=== PATIENT | female | born 1950 | race Hispanic/Latino ===

== ENCOUNTER 2021-11-02 10:50 | Inpatient (IN) | payer MEDICARE ==
[2021-10-30 14:48] LABS: BASOPHILS % 0.4 % (0.0-1.0); EOSINOPHILS # (AUTO) 0.2 (0.0-0.4); EOSINOPHILS % 1.9 % (0.0-6.0); HEMOGLOBIN 13.2 g/dL (12.0-16.0); LYMPHOCYTES # (AUTO) 2.1 (1.0-3.2); MEAN CORPUSCULAR VOLUME 90.9 fL (81-99); MONOCYTES # (AUTO) 0.7 (0.2-0.8); MONOCYTES % 7.7 % (4.4-11.3); NEUTROPHILS # (AUTO) 6.1 (2.1-6.9); NEUTROPHILS % 66.8 % (38.7-80.0); PLATELET COUNT 288 x10e3/uL (140-360); RED CELL DISTRIBUTION WIDTH 12.8 % (11.7-14.4)
[2021-10-30 15:10] LABS: ANION GAP 14.7 mmol/L (8-16); CALCIUM 9.1 mg/dL (8.4-10.2); CREATININE, SERUM 0.81 mg/dL (0.57-1.11); POTASSIUM 4.7 mmol/L (3.5-5.1)
[~2021-11-02] VITALS: Ht 170.2 cm; Wt 85.3 kg
[~2021-11-02 10:50] MED LIST: ALBUTEROL0.63 MG/3 INH; ALTOPREV40 MG PO; ARIMIDEX1 MG PO; ASPIRIN81 MG PO; CALCIUM PO; CYPROHEPTADINE H4 MG PO; DICYCLOMINE HCL20 MG PO; MICARDIS20 MG PO; NAPROXEN250 MG PO; VITAMIN B-121000 MCG PO; VITAMIN C 500500 MG PO; [UNRECOGNIZED DRUG - OTHER] PO
[2021-11-02] MEDS ORDERED: LEVOFLOXACIN 500MG/D5W 100ML 100 ML IV ONE (11:28)
[2021-11-02] MEDS ORDERED: SCOPOLAMINE 1 MG PATCH ONE (11:58)
[2021-11-02] MEDS ORDERED: ONDANSETRON HCL INJ 2MG/ML 2ML 2 MG/ML VIAL ONE (12:20)
[2021-11-02] MEDS ORDERED: SEVOFLURANE INHAL SOLN 250 ML PEN BTL ONE (12:20)
[2021-11-02] MEDS ORDERED: GLYCOPYRROLATE INJ 0.2 MG/ML VIAL ONE (12:20)
[2021-11-02] MEDS ORDERED: PROPOFOL IV EMULSION 10 MG/ML 20 ML VIAL ONE (12:20)
[2021-11-02] MEDS ORDERED: NEOSTIGMINE 1 MG/ML 10ML VIAL ONE (12:20)
[2021-11-02] MEDS ORDERED: POVIDONE IODINE 0.05% 0.05 % ML PO ONE (12:20)
[2021-11-02] MEDS ORDERED: ROCURONIUM BROMIDE 10 MG/ML 5ML VIAL IV ONE (12:20)
[2021-11-02] MEDS ORDERED: DEXAMETHASONE SOD PHOS INJ 4 MG/ML SDV ONE (12:20)
[2021-11-02] MEDS ORDERED: MIDAZOLAM HCL 2 MG/2 ML VIAL ONE (12:38)
[2021-11-02] MEDS ORDERED: FENTANYL CITRATE/PF 100MCG/2 ML INJ ONE ×2 (12:38→16:03)
[2021-11-02] MEDS: SODIUM CHLORIDE 0.9% 250ML IRRIG IR SCH ×2 (15:15→19:35)
[2021-11-02] MEDS ORDERED: NALOXONE HCL INJ 0.4 MG/ML AMP IV PRN (15:15)
[2021-11-02] MEDS ORDERED: ACETAMINOPHEN/CODEINE 300MG - 30MG TAB PO PRN (15:15)
[2021-11-02] MEDS ORDERED: ACETAMINOPHEN 1000 MG/100 ML IV PRN (15:15)
[2021-11-02] MEDS ORDERED: ONDANSETRON HCL INJ 2MG/ML 2ML 2 MG/ML VIAL IV PRN (15:15)
[2021-11-02] MEDS ORDERED: DIPHENHYDRAMINE HCL INJ 50 MG/ML VIAL IM PRN (15:15)
[2021-11-02] MEDS: MORPHINE SULFATE 1 MG/ML 30ML PCA IV PRN (15:35)
[2021-11-02 15:45] LABS: BASOPHILS % 0.4 % (0.0-1.0); EOSINOPHILS % 0.4 % (0.0-6.0); HEMATOCRIT 36.1 % (34.2-44.1); HEMOGLOBIN 11.6 g/dL (12.0-16.0); LYMPHOCYTES # (AUTO) 1.1 (1.0-3.2); LYMPHOCYTES % 10.9 % (18.0-39.1); MEAN CORPUSCULAR HEMOGLOBIN 29.7 pg (28-32); MEAN CORPUSCULAR HGB CONC 32.1 g/dL (31-35); MEAN CORPUSCULAR VOLUME 92.6 fL (81-99); MONOCYTES # (AUTO) 0.3 (0.2-0.8); MONOCYTES % 2.9 % (4.4-11.3); NEUTROPHILS # (AUTO) 8.8 (2.1-6.9); PLATELET COUNT 234 x10e3/uL (140-360); RED CELL DISTRIBUTION WIDTH 12.9 % (11.7-14.4)
[2021-11-02] MEDS ORDERED: NEOMYCIN/POLYMYX/BACITR OINT 0.9 GM PKT ONE (15:58)
[2021-11-02 16:04] LABS: CALCIUM 7.9 mg/dL (8.4-10.2); CREATININE, SERUM 0.74 mg/dL (0.57-1.11)
[2021-11-02 16:17] VITALS: BP 145/85
[2021-11-02 16:41] VITALS: BP 145/85
[2021-11-02] MEDS: DOCUSATE SODIUM 100 MG CAP PO SCH (17:00)
[2021-11-02] MEDS: D5.45%NS/KCL 20MEQ 1,000 ML IV SCH (17:51)
[2021-11-02 18:06] VITALS: BP 145/85
[2021-11-02] MEDS ORDERED: VITAMIN D3125 MCG PO (18:13)
[2021-11-02] MEDS ORDERED: CETIRIZINE HCL10 MG PO (18:13)
[2021-11-02 20:00] VITALS: BP 152/85
[2021-11-02 20:49] VITALS: BP 153/103
[2021-11-03] VITALS (7 sets, daily range): BP systolic 131–160; BP diastolic 63–80
[2021-11-03] MEDS: SODIUM CHLORIDE 0.9% 250ML IRRIG IR SCH ×7 (00:42→23:15)
[2021-11-03] MEDS: D5.45%NS/KCL 20MEQ 1,000 ML IV SCH (00:43)
[2021-11-03] MEDS: MORPHINE SULFATE 1 MG/ML 30ML PCA IV PRN (02:15)
[2021-11-03 05:01] LABS: BASOPHILS % 0.1 % (0.0-1.0); HEMATOCRIT 38.2 % (34.2-44.1); HEMOGLOBIN 12.7 g/dL (12.0-16.0); LYMPHOCYTES # (AUTO) 0.9 (1.0-3.2); LYMPHOCYTES % 6.4 % (18.0-39.1); MEAN CORPUSCULAR HEMOGLOBIN 29.8 pg (28-32); MEAN CORPUSCULAR HGB CONC 33.2 g/dL (31-35); MEAN CORPUSCULAR VOLUME 89.7 fL (81-99); MONOCYTES # (AUTO) 0.8 (0.2-0.8); MONOCYTES % 6.3 % (4.4-11.3); NEUTROPHILS # (AUTO) 11.5 (2.1-6.9); NEUTROPHILS % 86.8 % (38.7-80.0); PLATELET COUNT 264 x10e3/uL (140-360); RED BLOOD COUNT 4.26 x10e6/uL (3.6-5.1); RED CELL DISTRIBUTION WIDTH 12.3 % (11.7-14.4)
[2021-11-03 05:23] LABS: ANION GAP 13.5 mmol/L (8-16); CALCIUM 8.3 mg/dL (8.4-10.2); CREATININE, SERUM 1.01 mg/dL (0.57-1.11); POTASSIUM 4.5 mmol/L (3.5-5.1)
[2021-11-03] MEDS ORDERED: HYDROCODONE/APAP 10MG-325MG TAB PO PRN (09:00)
[2021-11-03] MEDS: DOCUSATE SODIUM 100 MG CAP PO SCH ×2 (09:00→17:00)
[2021-11-03] MEDS ORDERED: HYDRALAZINE HCL 20 MG/ML VIAL IV PRN (09:00)
[2021-11-03] MEDS: FAMOTIDINE 20 MG/2 ML VIAL IV SCH ×2 (09:30→17:00)
[2021-11-03] MEDS: SODIUM CHLORIDE 0.9% 1000ML 1,000 ML IV SCH ×2 (09:30→21:03)
[2021-11-03] MEDS ORDERED: LORAZEPAM INJ 2 MG/ML VIAL IV PRN (09:45)
[2021-11-03] MEDS: LEVOFLOXACIN 250MG/D5W 50ML 50 ML IV SCH (11:54)
[2021-11-04] VITALS (8 sets, daily range): BP systolic 125–137; BP diastolic 63–70
[2021-11-04] MEDS: SODIUM CHLORIDE 0.9% 250ML IRRIG IR SCH ×4 (02:32→14:39)
[2021-11-04] MEDS: MORPHINE SULFATE 1 MG/ML 30ML PCA IV PRN (04:49)
[2021-11-04 04:58] LABS: BASOPHILS % 0.3 % (0.0-1.0); EOSINOPHILS % 0.3 % (0.0-6.0); HEMATOCRIT 35.2 % (34.2-44.1); HEMOGLOBIN 11.5 g/dL (12.0-16.0); LYMPHOCYTES # (AUTO) 1.5 (1.0-3.2); LYMPHOCYTES % 13.2 % (18.0-39.1); MEAN CORPUSCULAR HEMOGLOBIN 29.6 pg (28-32); MEAN CORPUSCULAR HGB CONC 32.7 g/dL (31-35); MEAN CORPUSCULAR VOLUME 90.5 fL (81-99); MONOCYTES # (AUTO) 0.9 (0.2-0.8); NEUTROPHILS % 77.9 % (38.7-80.0); PLATELET COUNT 234 x10e3/uL (140-360); RED BLOOD COUNT 3.89 x10e6/uL (3.6-5.1); RED CELL DISTRIBUTION WIDTH 12.6 % (11.7-14.4)
[2021-11-04] MEDS: SODIUM CHLORIDE 0.9% 1000ML 1,000 ML IV SCH ×2 (05:04→16:43)
[2021-11-04 05:22] LABS: ANION GAP 12.1 mmol/L (8-16); CALCIUM 8.1 mg/dL (8.4-10.2); CREATININE, SERUM 1.09 mg/dL (0.57-1.11); POTASSIUM 4.1 mmol/L (3.5-5.1)
[2021-11-04 06:05] LABS: MAGNESIUM 1.8 MG/DL (1.3-2.1); PHOSPHORUS 2.3 MG/DL (2.3-4.7)
[2021-11-04 06:26] LABS: THYROID STIMULATING HORMONE 2.403 uIU/mL (0.350-4.940)
[2021-11-04] MEDS ORDERED: MAGNESIUM SULFATE 2GM/50ML IV ONE (08:30)
[2021-11-04] MEDS ORDERED: MAGNESIUM SULFATE 2GM/50ML 50 ML IV ONE (09:00)
[2021-11-04] MEDS: DOCUSATE SODIUM 100 MG CAP PO SCH ×2 (09:26→16:44)
[2021-11-04] MEDS: FAMOTIDINE 20 MG/2 ML VIAL IV SCH ×2 (09:26→16:43)
[2021-11-04] MEDS: HYDROCORTISONE .5% 30 GM TUBE TOP SCH (09:26)
[2021-11-04] MEDS: LEVOFLOXACIN 250MG/D5W 50ML 50 ML IV SCH (12:00)
[2021-11-04] MEDS: CHLORASEPTIC SPRAY 177 ML BTL MM PRN ×3 (12:16→20:25)
[2021-11-04] MEDS: Morphine 4mg Syringe 4 MG/ML INJ IV PRN ×3 (13:13→20:26)
[2021-11-04] MEDS ORDERED: ACETAMINOPHEN/CODEINE 300MG - 30MG TAB PO PRN (13:15)
[2021-11-04] MEDS ORDERED: TRAMADOL HCL 50 MG TAB PO PRN (13:30)
[2021-11-04] MEDS: NEOMYCIN/POLYMYXIN/BACITRACIN 15 GM TUBE TOP SCH ×2 (14:00→20:26)
[2021-11-04] MEDS: ONDANSETRON HCL INJ 2MG/ML 2ML 2 MG/ML VIAL IV PRN (16:55)
[2021-11-05] VITALS (8 sets, daily range): BP systolic 117–152; BP diastolic 58–80
[2021-11-05] MEDS: ONDANSETRON HCL INJ 2MG/ML 2ML 2 MG/ML VIAL IV PRN ×2 (03:50→21:30)
[2021-11-05] MEDS: Morphine 4mg Syringe 4 MG/ML INJ IV PRN ×6 (03:50→21:30)
[2021-11-05 04:59] LABS: BASOPHILS % 0.2 % (0.0-1.0); EOSINOPHILS # (AUTO) 0.2 (0.0-0.4); EOSINOPHILS % 1.7 % (0.0-6.0); HEMATOCRIT 34.7 % (34.2-44.1); HEMOGLOBIN 11.3 g/dL (12.0-16.0); LYMPHOCYTES # (AUTO) 1.2 (1.0-3.2); LYMPHOCYTES % 13.2 % (18.0-39.1); MEAN CORPUSCULAR HEMOGLOBIN 29.4 pg (28-32); MEAN CORPUSCULAR HGB CONC 32.6 g/dL (31-35); MEAN CORPUSCULAR VOLUME 90.1 fL (81-99); MONOCYTES # (AUTO) 0.9 (0.2-0.8); MONOCYTES % 9.8 % (4.4-11.3); NEUTROPHILS # (AUTO) 6.6 (2.1-6.9); NEUTROPHILS % 74.8 % (38.7-80.0); PLATELET COUNT 240 x10e3/uL (140-360); RED BLOOD COUNT 3.85 x10e6/uL (3.6-5.1); RED CELL DISTRIBUTION WIDTH 12.7 % (11.7-14.4)
[2021-11-05 05:24] LABS: ANION GAP 10.7 mmol/L (8-16); CALCIUM 8.1 mg/dL (8.4-10.2); CREATININE, SERUM 1.04 mg/dL (0.57-1.11); POTASSIUM 4.7 mmol/L (3.5-5.1)
[2021-11-05] MEDS: SODIUM CHLORIDE 0.9% 1000ML 1,000 ML IV SCH ×2 (05:47→23:00)
[2021-11-05] MEDS: DOCUSATE SODIUM 100 MG CAP PO SCH ×2 (08:23→16:11)
[2021-11-05] MEDS: FAMOTIDINE 20 MG/2 ML VIAL IV SCH ×2 (08:23→16:11)
[2021-11-05] MEDS: NEOMYCIN/POLYMYXIN/BACITRACIN 15 GM TUBE TOP SCH ×2 (08:25→16:11)
[2021-11-05] MEDS: HYDROCORTISONE .5% 30 GM TUBE TOP SCH (08:25)
[2021-11-05] MEDS: LEVOFLOXACIN 250MG/D5W 50ML 50 ML IV SCH (11:27)
[2021-11-05] MEDS: CHLORASEPTIC SPRAY 177 ML BTL MM PRN (21:30)
[2021-11-06 00:20] VITALS: BP 131/70
[2021-11-06 04:00] VITALS: BP 116/64
[2021-11-06 04:59] LABS: BASOPHILS % 0.2 % (0.0-1.0); EOSINOPHILS # (AUTO) 0.2 (0.0-0.4); EOSINOPHILS % 2.7 % (0.0-6.0); HEMATOCRIT 34.1 % (34.2-44.1); LYMPHOCYTES # (AUTO) 1.8 (1.0-3.2); LYMPHOCYTES % 21.1 % (18.0-39.1); MEAN CORPUSCULAR HEMOGLOBIN 29.1 pg (28-32); MEAN CORPUSCULAR HGB CONC 32.3 g/dL (31-35); MEAN CORPUSCULAR VOLUME 90.2 fL (81-99); MONOCYTES # (AUTO) 0.8 (0.2-0.8); MONOCYTES % 9.4 % (4.4-11.3); NEUTROPHILS # (AUTO) 5.6 (2.1-6.9); NEUTROPHILS % 66.4 % (38.7-80.0); PLATELET COUNT 233 x10e3/uL (140-360); RED BLOOD COUNT 3.78 x10e6/uL (3.6-5.1); RED CELL DISTRIBUTION WIDTH 12.7 % (11.7-14.4)
[2021-11-06 05:15] LABS: CALCIUM 7.8 mg/dL (8.4-10.2); CREATININE, SERUM 1.06 mg/dL (0.57-1.11)
[2021-11-06 08:04] VITALS: BP 132/84
[2021-11-06 08:48] VITALS: BP 132/84
[2021-11-06] MEDS ORDERED: ONDANSETRON HCL 4 MG ORAL DISINTEGRATING TAB PO PRN (09:15)
[2021-11-06] MEDS ORDERED: LEVOFLOXACIN 250 MG TAB PO SCH (10:00)
[2021-11-06] MEDS: DOCUSATE SODIUM 100 MG CAP PO SCH (10:23)
[2021-11-06] MEDS: NEOMYCIN/POLYMYXIN/BACITRACIN 15 GM TUBE TOP SCH (10:29)
[2021-11-06 11:11] VITALS: BP 126/74
[2021-11-06] MEDS ORDERED: ONDANSETRON ODT4 MG PO (15:50)
[2021-11-06] MEDS ORDERED: LEVOFLOXACIN250 MG PO (15:50)
[2021-11-06] MEDS ORDERED: PEPCID20 MG PO (15:51)
[2021-11-06] MEDS ORDERED: ULTRAM50 MG PO (15:51)
[2021-11-06 16:02] VITALS: BP 143/81
[2021-11-06] MEDS ORDERED: FAMOTIDINE 20 MG TAB PO SCH (16:30)
== END 2021-11-06 16:40 | disposition home or self-care (01) | DRG 657 ==
LOC: OR 10:50 → PACU V 15:19 → MED/SURG 16:20
PROVIDERS: ADMIT Internal Medicine; ATTEND Internal Medicine
PROC: 0TT70ZZ Resection of Left Ureter, Open Approach (ICD-10-PCS; 2021-11-02)
PROC: 0TT10ZZ Resection of Left Kidney, Open Approach (ICD-10-PCS; principal; 2021-11-02 12:38)
DX: C64.2 Malignant neoplasm of left kidney, except renal pelvis (principal); E44.1 Mild protein-calorie malnutrition; M62.838 Other muscle spasm; I10 Essential (primary) hypertension; G89.18 Other acute postprocedural pain; E66.9 Obesity, unspecified; Z68.30 Body mass index [BMI] 30.0-30.9, adult; Z88.5 Allergy status to narcotic agent; Z88.0 Allergy status to penicillin; K21.9 Gastro-esophageal reflux disease without esophagitis; Z20.822 Contact with and (suspected) exposure to COVID-19; Z68.29 Body mass index [BMI] 29.0-29.9, adult
CPT/HCPCS: 36415; 71045; 71046; 80048; 83036; 83735; 84100; 84443; 85025; 86850; 86900; 86920; 88309; 93005; 94799; 96361; 97139; 99251; J1100; J1956; J2250; J2270; J2405; J2710; J3010; J3475; J7030; U0002